=== PATIENT | female | born 1985 | race Two or more races ===

== ENCOUNTER 2016-11-25 13:41 | Emergency (ER) | payer MEDICAID | END 2016-11-25 13:50 | disposition left against medical advice (07) | LOC: ER 13:41 | DX: T67.0XXA Heatstroke and sunstroke, initial encounter (principal); Z53.21 Procedure and treatment not carried out due to patient leaving prior to being seen by health care provider; X30.XXXA Exposure to excessive natural heat, initial encounter; Y93.89 Activity, other specified; Y92.89 Other specified places as the place of occurrence of the external cause; Y99.8 Other external cause status ==